=== PATIENT | female | born 1985 | race Asian ===

== ENCOUNTER → 2022-07-18 10:47 | Outpatient (CLI) | payer OTHER, SELFPAY ==
--- NOTE | 2022-07-18 | DI.MRI.S_ITS ---
PROCEDURE: MR WRIST RT WO CON INDICATIONS: Pain in right wrist TECHNIQUE: Noncontrast coronal proton density fast spin echo and T2 fast spin echo with fat saturation; coronal 3-D gradient echo, axial T1 spin echo and T2 fast spin echo with fat saturation, sagittal T1 spin echo through the wrist. COMPARISON: None. FINDINGS: Image quality: Excellent. MRI images shows a 0.8 x 0.6 centimeters small septated ganglion cyst extending out of the articulation between the scaphoid and lunate extending in a palmar and radial direction. The triangular fibrocartilage appears intact. Wrist ligaments and tendons appear within normal limits. No soft tissue masses are seen. Marrow signal visualized bones is normal. No significant joint effusion is identified. No degenerative changes are seen. Musculature appears within normal limits. IMPRESSION: 1. Small is 0.8 x 0.6 centimeter septated ganglion cyst extending out of the scapholunate articulation in a palmar and radial direction. If further evaluation to evaluate the scapholunate ligament is of clinical concern MR arthrogram may be of further clinical value. Dictated by: Nayan Raines M.D. on 07/18/2022 at 14:25 Approved by: Nayan Raines M.D. on 07/18/2022 at 14:32
== END ==
PROVIDERS: Referring Provider Orthopaedic Surgery; Visit Provider Orthopaedic Surgery
DX: M67.431 Ganglion, right wrist (principal); M25.531 Pain in right wrist
CPT/HCPCS: 73221

== ENCOUNTER → 2023-01-18 08:58 | Outpatient (CLI) | payer OTHER, SELFPAY ==
--- NOTE | 2023-01-18 | DI.MRI.S_ITS ---
PROCEDURE: MR LUMBAR SPINE WO CON INDICATIONS: Low back pain, unspecified TECHNIQUE: Noncontrast sagittal T1 spin echo and T2 fast echo, sagittal STIR, and T2 fast spin echo through the lumbar spine. In cases with scoliosis, additional coronal T2 fast spin echo may be performed. COMPARISON: None. FINDINGS: Image quality: Excellent. Alignment and Curvature: There is normal bony alignment. Bone Marrow: Marrow is of normal overall signal. No acute vertebral body compression fractures. Spinal Cord: Conus medullaris terminates at the L1 level. Visualized cord demonstrates normal signal and size. Paraspinous Soft Tissues: No paravertebral masses. T12-L1: Normal appearance. L1-L2: Normal appearance. L2-L3: Normal appearance. L3-L4: Normal appearance. L4-L5: Normal appearance. L5-S1: Normal appearance. IMPRESSION: Normal lumbar spine MRI. Dictated by: Andres Verdugo M.D. on 01/20/2023 at 11:20 Approved by: Andres Verdugo M.D. on 01/20/2023 at 11:24
== END ==
DX: M54.50 Low back pain, unspecified (principal); F41.9 Anxiety disorder, unspecified
CPT/HCPCS: 72148

== ENCOUNTER 2023-02-01 12:45 | Emergency (ER) | payer OTHER, SELFPAY ==
[2023-02-01 12:49] VITALS: BP 123/72; PULSE 84; RESP 14; TEMP 36.3; O2SAT 99; BMI 26.5
--- NOTE | 2023-02-01 13:12 | ED.BACK ---
HPI - Back Pain/Injury <JASON Johnson Last Filed: 02/01/23 13:34> General Chief Complaint: Back Pain/Injury Stated Complaint: Lower Back PAIN....Chronic Time Seen by Provider: 02/01/23 12:51 Source: patient History of Present Illness HPI Narrative: This is a 37-year-old female presenting to the emergency department due to acute lower back pain. She denies any acute injury. Patient states that the pain begins in her left side of her lower back and radiates down her left lower extremity. She denies any urinary or bowel incontinence, saddle paresthesia, fevers, or any other concerning signs or symptoms. Reports slight numbness and tingling to the lateral aspect of her thigh. Related Data Previous Rx's Medication Instructions Recorded cyclobenzaprine 10 mg tablet 10 mg PO TID PRN muscle spasm #30 02/01/23 tabs Allergies Allergy/AdvReac Type Severity Reaction Status Date / Time No Known Drug Allergies Allergy Verified 02/01/23 12:54 Review of Systems <JASON Johnson Last Filed: 02/01/23 13:34> Review of Systems Narrative: GENERAL: Denies chills, fatigue, malaise, fever, sweats. HEENT: Denies sinus pain, ear pain, sore throat, difficulty swallowing, dizziness. RESPIRATORY: Denies dyspnea, cough, wheezing, hemoptysis, sputum. CARDIOVASCULAR: Denies chest pain, palpitations, orthopnea, edema, GASTROINTESTINAL: Denies nausea, vomiting, abdominal pain, diarrhea, constipation, melena. : Denies dysuria, frequency, incontinence, hematuria, urinary retention. MUSCULOSKELETAL: Reports left lumbar and left lower extremity pain SKIN: Denies rash, skin lesions, or other NEUROLOGIC: Denies weakness, headache, numbness, change in speech, confusion, seizures, incoordination. PSYCHIATRIC: No concerning psychosocial issues. 12 point review of systems is negative except for those stated above Patient History <JASON Johnson Last Filed: 02/01/23 13:34> Social History Smoking Status: Never smoker Smoking Status: Never smoker alcohol intake frequency: 0-2 drinks per day Substance Use Type: does not use Exam <JASON Johnson Last Filed: 02/01/23 13:34> Narrative Exam Narrative: GENERAL: Well-developed patient, in mild distress. HEAD: Atraumatic. Normocephalic. EYES: Pupils equal round and reactive. Extraocular motions intact. No scleral icterus. No injection or drainage. ENT: Nose without bleeding, purulent drainage. Throat without erythema, tonsillar hypertrophy or exudate. Airway patent. NECK: Trachea midline. Non tender CARDIOVASCULAR: Regular rate and rhythm without murmurs, gallops, or rubs. RESPIRATORY: Clear to auscultation. Breath sounds equal bilaterally. No wheezes, rales, or rhonchi. GASTROINTESTINAL: Abdomen soft, non-tender, nondistended. EXTREMITIES: No edema or joint tenderness. BACK: Tenderness to palpation to the left lumbar paraspinal muscles. NEURO: AOx3. SKIN: No rash or erythema of visible areas Initial Vital Signs Initial Vital Signs: Vital Signs Temperature 97.4 F L 02/01/23 12:49 Pulse Rate 84 02/01/23 12:49 Respiratory Rate 14 02/01/23 12:49 Blood Pressure 123/72 02/01/23 12:49 Pulse Oximetry 99 02/01/23 12:49 Oxygen Delivery Method Room Air 02/01/23 12:49 <Michael Mc DO - Last Filed: 02/01/23 16:11> Initial Vital Signs Initial Vital Signs: Vital Signs Temperature 97.4 F L 02/01/23 12:49 Pulse Rate 84 02/01/23 12:49 Respiratory Rate 14 02/01/23 12:49 Blood Pressure 123/72 02/01/23 12:49 Pulse Oximetry 99 02/01/23 12:49 Oxygen Delivery Method Room Air 02/01/23 12:49 Course <Hilton Santoro PA-C - Last Filed: 02/01/23 13:34> Orders Ordered: Discontinued Medications Ketorolac Tromethamine (Ketorolac 30 Mg/Ml Vial) 15 mg IM NOW ONE Stop: 02/01/23 13:34 Last Admin: 02/01/23 13:36 Dose: 15 mg Documented By: SHIVAM Vital Signs Vital signs: Vital Signs - 8 hr 02/01/23 12:49 02/01/23 13:39 Temperature 97.4 F L Pulse Rate 84 73 Respiratory Rate 14 16 Blood Pressure 123/72 114/71 Pulse Oximetry 99 99 Oxygen Delivery Method Room Air Room Air <Michael Mc DO - Last Filed: 02/01/23 16:11> Orders Ordered: Discontinued Medications Ketorolac Tromethamine (Ketorolac 30 Mg/Ml Vial) 15 mg IM NOW ONE Stop: 02/01/23 13:34 Last Admin: 02/01/23 13:36 Dose: 15 mg Documented By: SHIVAM Vital Signs Vital signs: Vital Signs - 8 hr 02/01/23 12:49 02/01/23 13:39 Temperature 97.4 F L Pulse Rate 84 73 Respiratory Rate 14 16 Blood Pressure 123/72 114/71 Pulse Oximetry 99 99 Oxygen Delivery Method Room Air Room Air MDM - Back Pain/Injury <Hilton Santoro PA-C - Last Filed: 02/01/23 13:34> MDM Narrative Medical decision making narrative: MDM * differential diagnosis includes but not limited to lumbosacral strain, vertebral fracture, cauda equina syndrome * Prior records reviewed: Patient has not been here in the past * My lab interpretation: None obtained * My imgaing interpretation: None obtained * Clinical Decision Rules/Scores evaluated: None * Independent discussions with: None ED Course: This is a 37-year-old female presents emergency department due to suspected lumbar sacral strain. No acute injury and low concern for any kind of vertebral fracture. No red flag symptoms such as saddle paresthesia, urinary bowel incontinence, or fevers. We will treat with IM Toradol and advised to follow up with the primary care provider. Shared Decision Making: Discussed plan with patient who is comfortable with the plan. Social Considerations: None Disposition: Discharged to home Discharge Plan Departure Patient Disposition: Home Clinical Impression: Strain of lumbar region Instructions: DI for Back Pain With Sciatica Activity Restrictions/Additional Instructions: Thank you for coming to the [facility] Emergency Department today. The shot giving today should help with the pain. Please also take the medications as prescribed. This pain should improve over time. I hope you feel better soon. Please follow up with your primary care provider within a week if your symptoms continue. If you do not have a primary care provider please contact the [facility] Resource line at [phone]. They will ask some questions about your medical history and help you get set up with a provider in the community. Prescriptions: New cyclobenzaprine 10 mg tablet 10 mg PO TID PRN (Reason: muscle spasm) Qty: 30 0RF Referrals: Provider,Dale SCHMID [Primary Care Provider] - Stand Alone Forms: Patient Portal/API ED Sign-out <Michael Mc DO - Last Filed: 02/01/23 16:11> Cosign ED Attending Juan M Attestation: I was immediately available in the department for consultation. Documentation has been reviewed. I agree with assessment and plan.
[2023-02-01] MEDS: KETOROLAC 30 MG/ML VIAL 15 MG IM (13:36)
[2023-02-01 13:39] VITALS: BP 114/71; PULSE 73; RESP 16; O2SAT 99
--- NOTE | 2023-02-01 13:56 | PC.NURSE ---
No ill effect after toradol. W/C to waiting room. Family member driving home.
== END 2023-02-01 13:56 | disposition home or self-care (01) ==
PROVIDERS: Emergency Provider Physician Assistant Medical
DX: S39.012A Strain of muscle, fascia and tendon of lower back, initial encounter (principal)
CPT/HCPCS: 96372; 99283; J1885